=== PATIENT | male | born 1970 | race Asian ===

== ENCOUNTER → 2020-09-03 11:56 | Outpatient (CLI) | payer OTHER, MEDICAID, SELFPAY ==
[2020-09-03] MEDS: COVID-19 VACC, Ad26(JANSSEN)/PF 0.5 ML IM (12:02)
== END ==
PROVIDERS: Visit Provider Internal Medicine
DX: Z23 Encounter for immunization (principal)
CPT/HCPCS: 0031A; 91303

== ENCOUNTER 2022-09-26 09:11 | Emergency (ER) | payer OTHER, SELFPAY ==
[2022-09-26] VITALS (8 sets, daily range): BP systolic 152–169; BP diastolic 73–95; PULSE 68–77; RESP 19; TEMP 36.8; O2SAT 97–98; BMI 30.7
--- NOTE | 2022-09-26 09:19 | DI.RAD.S_ITS ---
PROCEDURE: XR HAND RT MIN 3V INDICATIONS: distal index finger amputation TECHNIQUE: 3 views of the hand(s) acquired. COMPARISON: None. FINDINGS: Bones: Soft tissue defect involving the distal right index finger with amputation of the distal phalanx near the mid portion of the distal phalanx. No radiopaque soft tissue foreign bodies identified. Soft tissue injury noted over the distal tip of the right middle finger without definite fracture or dislocation. Nondisplaced comminuted fracture involving the distal tuft of the right 4th finger. Soft tissues: No suspicious soft tissue calcifications. IMPRESSION: 1. Amputation of the distal tip of the right index finger distal phalanx with overlying soft tissue injury. No definite radiopaque soft tissue foreign body. 2. Comminuted, nondisplaced fracture involving the distal tuft of the right ring finger. 3. Soft tissue injury of the right distal 3rd digit without definite fracture or dislocation. No radiopaque soft tissue foreign body seen. Dictated by: Ian Huerta M.D. on 09/26/2022 at 10:32 Approved by: Ian Huerta M.D. on 09/26/2022 at 10:34
--- NOTE | 2022-09-26 09:24 | ED_ITS ---
HPI - General Adult General Chief complaint: Extremity Injury, Upper Stated complaint: amputation rt hand pinky first knuckle Time Seen by Provider: 09/26/22 09:19 Source: patient Mode of arrival: Ambulatory Limitations: no limitations History of Present Illness HPI narrative: Patient is a 52-year-old male who is here for evaluation of a cut to his right index finger and middle finger. It occurred just prior to arrival. He states he cut it with a circular saw. It did cut the tip of his index finger. The stated complaint is ?pinky? finger but it is his index and middle finger. He does have the tip of the finger with him. No other injuries from the event. Related Data Previous Rx's Medication Instructions Recorded cephalexin 500 mg capsule 500 mg PO QID 5 days #20 caps 09/26/22 hydrocodone 5 mg-acetaminophen 325 1 tab PO Q4-6H PRN pain #14 tabs 09/26/22 mg tablet Allergies Allergy/AdvReac Type Severity Reaction Status Date / Time No Known Drug Allergies Allergy Verified 09/26/22 09:40 Review of Systems Constitutional Constitutional: Reports system reviewed and no additional complaints, except as documented Musculoskeletal Musculoskeletal: Reports system reviewed and no additional complaints, except as documented Integumentary/Breasts Skin/Breast: Reports system reviewed and no additional complaints, except as documented Neurologic Neurologic: Reports system reviewed and no additional complaints, except as documented Hematologic/Lymphatic On Anticoagulants: No Patient History Social History Smoking Status: Never smoker Exam Initial Vital Signs Initial Vital Signs: Vital Signs Temperature 98.3 F 09/26/22 09:26 Pulse Rate 72 09/26/22 09:26 Respiratory Rate 19 09/26/22 09:26 Blood Pressure 169/86 H 09/26/22 09:26 Pulse Oximetry 97 09/26/22 09:26 Oxygen Delivery Method Room Air 09/26/22 09:26 Cardio Pulses: radial pulses present on the right Skin Other: Patient with a flap laceration on the radial aspect of the distal right middle finger distal to the D IP joint. It does not involve the nail. Patient has a complete amputation of the right index finger distal to the D IP joint. Neuro Other: Patient reports intact sensation to the distal aspect of the remaining right index finger Extrem Other: Distal amputation of right index finger. Patient is able to flex and extend actively at the PIP and the IP joint of the index finger and of the middle finger. Procedures Laceration Repair Laceration 1: Site: hand (Right middle finger) Side (If applicable): right Size (cm): 2 Description: irregular and clean Depth: simple, single layer Local Anesthetic: lidocaine 1% Amount of anesthesia used (mL): 3 Pre-repair: wound explored, irrigated extensively and deep structures intact Skin layer closed with: nylon Skin layer suture size: 4-0 Number of sutures: 6 Technique: simple, interrupted Nerve Block Nerve Block 1: Local Anesthetic: lidocaine 1% Amount of anesthesia used (mL): 5 Side: right Nerve Blocks: digital Procedure Successful: Yes Patient Tolerated Procedure: Well Complications: none Course Orders Ordered: ED Orders 09/26/22 09:19 XR hand RT min 3V Stat Discontinued Medications Hydrocodone Bitart/Acetaminophen (Hydrocodone/Acet 5/325 Tablet) 1 tab PO NOW ONE Stop: 09/26/22 09:30 Last Admin: 09/26/22 09:41 Dose: 1 tab Documented By: SY Diphtheria/Tetanus/Acell Pertussis (Tet,Diph,Pertuss(Acell),Vac/Pf 0.5 Ml Syringe) 0.5 ml IM .ONCE ONE Stop: 09/26/22 09:21 Last Admin: 09/26/22 09:41 Dose: 0.5 ml Documented By: SY Lidocaine HCl (Lidocaine 2% Inj Sdv 5ml) 5 ml INJ INTRA-OP ONE Stop: 09/26/22 09:20 Last Admin: 09/26/22 09:42 Dose: 5 ml Documented By: SY Lidocaine HCl (Lidocaine 2% Inj Sdv 5ml) 5 ml INJ INTRA-OP ONE Stop: 09/26/22 09:47 Last Admin: 09/26/22 10:13 Dose: 5 ml Documented By: SY Vital Signs Vital signs: Vital Signs - 8 hr 09/26/22 09:26 09/26/22 09:32 09/26/22 09:33 Temperature 98.3 F Pulse Rate 72 76 Respiratory Rate 19 Blood Pressure 169/86 H 169/86 H Pulse Oximetry 97 97 Oxygen Delivery Method Room Air 09/26/22 09:33 09/26/22 10:00 09/26/22 10:00 Temperature Pulse Rate 72 77 Respiratory Rate Blood Pressure 165/95 H Pulse Oximetry 97 98 Oxygen Delivery Method 09/26/22 10:30 09/26/22 10:31 09/26/22 10:31 Temperature Pulse Rate 73 71 Respiratory Rate Blood Pressure 152/76 H Pulse Oximetry 97 97 Oxygen Delivery Method 09/26/22 11:00 09/26/22 11:01 09/26/22 11:01 Temperature Pulse Rate 68 68 Respiratory Rate Blood Pressure 161/73 H Pulse Oximetry 98 98 Oxygen Delivery Method Medical Decision Making Imaging Data Extremity x-ray #1: Radiologist's Impression: PROCEDURE:? XR HAND RT MIN 3V ? INDICATIONS:? distal index finger amputation ? TECHNIQUE:? 3 views of the hand(s) acquired.? ? COMPARISON:? None. ? FINDINGS:? ? Bones:? Soft tissue defect involving the distal right index finger with amputation of the distal phalanx near the mid portion of the distal phalanx.? No radiopaque soft tissue foreign bodies identified.? Soft tissue injury noted over the distal tip of the right middle finger without definite fracture or dislocation.? Nondisplaced comminuted fracture involving the distal tuft of the right 4th finger. ? Soft tissues:? No suspicious soft tissue calcifications.? ? ? IMPRESSION:? ? 1. Amputation of the distal tip of the right index finger distal phalanx with overlying soft tissue injury.? No definite radiopaque soft tissue foreign body. ? 2. Comminuted, nondisplaced fracture involving the distal tuft of the right ring finger. ? 3. Soft tissue injury of the right distal 3rd digit without definite fracture or dislocation.? No radiopaque soft tissue foreign body seen.? MDM Narrative Medical decision making narrative: Patient has no tenderness at the tip of the right ring finger. I suspect that the injury seen on the x-ray is not new. He does have a laceration at the tip of the right middle finger that was ill regular. We closed it as described above. He is neurovascularly intact in his full range of motion of his MCP and the IP joint. Low suspicion for tendon involvement. Patient does have a distal amputation of the right index finger. It is distal to the DIPJ joint. The bone is not exposed. It is covered by soft tissue. I attempted to close the soft tissue however I was unable to do so. There is not enough to cover the area. I was able to stop the bleeding with Gelfoam. I did discuss the case with Dr. Sanon on-call for Orthopedic surgery who recommended that the patient follow-up in the clinic. I did discuss all this with the patient. Will send home with pain medication and antibiotics. He was given care instructions and return precautions. He expressed understanding and agreement with plan. Discharge Plan Departure Patient Disposition: Home Clinical Impression: Laceration of right middle finger, Amputation of right index finger Instructions: DI for Laceration Repair, DI for Traumatic Finger or Hand Amputat ion Activity Restrictions/Additional Instructions: The bandages that were placed today do need to stay on. I do recommend that later today you contact the Orthopedic Department of the number provided below for a follow-up. Pain medication and antibiotics were sent to the [facility] here in [place]. Return to the emergency department for new or worsening symptoms. Prescriptions: New hydrocodone-acetaminophen 5-325 mg tablet 1 tab PO Q4-6H PRN (Reason: pain) Qty: 14 0RF cephalexin 500 mg capsule 500 mg PO QID 5 Days Qty: 20 0RF Referrals: Miscellaneous,DoctorMD [Primary Care Provider] - Ronnell Sanon MD [Physician] - Stand Alone Forms: Patient Portal/API
[2022-09-26] MEDS: TET,DIPH,PERTUSS(ACELL),VAC/PF 0.5 ML SYRINGE IM (09:41)
[2022-09-26] MEDS: HYDROCODONE/ACET 5/325 TABLET 1 TAB PO (09:41)
[2022-09-26] MEDS: LIDOCAINE 2% INJ SDV 5ML 5 ML INJ ×2 (09:42→10:13)
== END 2022-09-26 11:47 | disposition home or self-care (01) ==
PROVIDERS: Emergency Provider Emergency Medicine
DX: S68.120A Partial traumatic metacarpophalangeal amputation of right index finger, initial encounter (principal); S61.212A Laceration without foreign body of right middle finger without damage to nail, initial encounter; W27.0XXA Contact with workbench tool, initial encounter; Y99.0 Civilian activity done for income or pay; Z23 Encounter for immunization
CPT/HCPCS: 12001; 73130; 90471; 99283; 99284; 90715

== ENCOUNTER 2023-11-27 08:04 | Emergency (ER) | payer BC, SELFPAY ==
[2023-11-27 09:22] VITALS: BP 167/91; PULSE 60; RESP 18; TEMP 36.6; O2SAT 100
--- NOTE | 2023-11-27 10:16 | PC.NURSE ---
This EDRN attempted to use the railroad crossing protection maintainer phone for triage, but was unable to reach a [facility] railroad crossing protection maintainer after 15 minutes. Patient then decline railroad crossing protection maintainer at this time and requested to have his translate for him.
--- NOTE | 2023-11-27 11:45 | DI.CT.S_ITS ---
PROCEDURE: CT FACIAL BONES W CON INDICATIONS: ?dental/facial abscess TECHNIQUE: After the administration of intravenous contrast, 2.5 mm axial sections acquired from the mid-neck to the frontal sinuses, with coronal and sagittal reformats. For radiation dose reduction, the following was used: automated exposure control, adjustment of mA and/or kV according to patient size. COMPARISON: None. FINDINGS: Image quality: Excellent. Soft tissues: No edema, masses, or fluid collections. No enlarged lymph nodes. Vascular: Visualized vascular structures appear patent throughout. Bony vascular foramina and canals appear normal. Bones: Facial bones appear intact, without fractures, erosions, or destruction. Visualized portions of the skull base and auditory canals also appear normal. Sinuses: Paranasal sinuses demonstrate scattered areas of mucosal thickening most severe in the left maxillary sinus. No fluid levels. IMPRESSION: No visualized abscess. Dictated by: Annalisa Thurman M.D. on 11/27/2023 at 12:48 Approved by: Annalisa Thurman M.D. on 11/27/2023 at 12:49
[2023-11-27 12:12] LABS: Add Manual Diff / Slide Review NO; Basophils Absolute Auto 0 /uL (0-100); Basophils Percent Auto 0.4 % (0-2); Eosinophils Absolute Auto 100 /uL (0-450); Eosinophils Percent Auto 0.8 % (2-4); Hematocrit 38.9 % (41-53); Hemoglobin 13.4 g/dL (13.5-17.5); Lymphocytes Absolute Auto 2000 /uL (1100-4500); Lymphocytes Percent Auto 27.3 % (25-40); Mean Corpuscular HGB Conc 34.5 % (30-36); Mean Corpuscular Hemoglobin 29.7 PG (26-34); Mean Corpuscular Volume 86.2 fL (80-100); Monocytes Absolute Auto 500 /uL (0-900); Monocytes Percent Auto 6.7 % (3-14); Neutrophils Absolute Auto 4600 /uL (1500-7000); Neutrophils Percent Auto 64.8 % (50-75); Platelet Count 180 X10^3/uL (150-400); Red Blood Cell Count 4.52 X10^6/uL (4.5-5.9); Red Cell Distribution Width 13.6 % (11.6-14.8); White Blood Cell Count 7.1 X10^3/uL (4.5-11.0)
[2023-11-27] MEDS: KETOROLAC 30 MG/ML VIAL 15 MG IV (12:25)
[2023-11-27 12:53] LABS: Alanine Aminotransferase 21 IU/L (<50); Albumin 4.5 g/dL (3.5-5.0); Albumin Globulin Ratio 1.1 (1.0-2.8); Alkaline Phosphatase 103 U/L (38-126); Aspartate Aminotransferase 26 IU/L (17-59); BUN Creatinine Ratio 20.5 (6-22); Bilirubin Total 0.6 mg/dL (0.2-1.3); Blood Urea Nitrogen 15 mg/dL (9-20); Calcium 9.3 mg/dL (8.4-10.2); Carbon Dioxide 24 mmol/L (22-32); Chloride 108 mmol/L (98-107); Estimated Glomerular Filt Rate > 60 mL/min (>60); Globulin 4.1 g/dL (1.7-4.1); Glucose 102 mg/dL (70-100); HEMOLYSIS < 15 (0-50); Potassium 4.4 mmol/L (3.4-5.1); Sodium 139 mmol/L (137-145); Total Protein 8.6 g/dL (6.3-8.2)
[2023-11-27 14:08] VITALS: BP 170/82; PULSE 82; RESP 16; O2SAT 99
--- NOTE | 2023-11-27 15:46 | ED.DENTAL ---
HPI - Dental/Oral <Andreas Espino PA-C - Last Filed: 11/27/23 17:53> General Chief complaint: Dental/Oral Stated complaint: swelling on L side face Time Seen by Provider: 11/27/23 11:32 Source: patient Mode of arrival: Ambulatory History of Present Illness HPI Narrative: 53-year-old male presents to the ED with 2 days of left-sided dental pain and swelling. Patient states that he got a seed from a guava fruit stuck in his gum 3 weeks ago and has not been able to get it out. Starting yesterday, patient states that he started experiencing severe pain in his gums and that the pain has moved up his face as well. No fever, chills, nausea, vomiting. Patient took some Tylenol this morning with minimal relief. Related Data Previous Rx's Medication Instructions Recorded amoxicillin 875 mg-potassium 1 tab PO Q12H 10 days #20 tabs 11/27/23 clavulanate 125 mg tablet Allergies Allergy/AdvReac Type Severity Reaction Status Date / Time No Known Drug Allergies Allergy Verified 11/27/23 09:25 Review of Systems <Andreas Espino PA-C - Last Filed: 11/27/23 17:53> Constitutional Constitutional: Denies chills, Denies fatigue, Denies fever(s), Denies frequent falls, Denies lethargy and Denies weakness Eyes Eyes: Denies change in vision, Denies eye discharge, Denies irritation and Denies loss of vision ENT Ears, Nose, Mouth, and Throat: Denies change in voice, Reports dental pain, Denies dizziness, Reports facial pain, Denies neck pain, Denies sore throat and Denies throat swelling Cardiovascular Cardiovascular: Denies chest pain, Denies irregular heart rhythm, Denies lightheadedness, Denies palpitations, Denies dyspnea, Denies dyspnea on exertion and Denies orthopnea Respiratory Respiratory: Denies cough, Denies dyspnea, Denies dyspnea on exertion and Denies wheezing Gastrointestinal Gastrointestinal: Denies abdominal pain, Denies change in bowel habits, Denies diarrhea, Denies nausea and Denies vomiting Musculoskeletal Musculoskeletal: Denies neck pain and Denies numbness Integumentary/Breasts Skin/Breast: Denies pruritus, Denies erythema, Denies rash and Denies wounds Neurologic Neurologic: Denies behavioral changes, Denies confusion, Denies dizziness, Denies frequent falls, Denies loss of vision, Denies numbness and Denies weakness Psychiatric Psychiatric: Denies anxiety, Denies behavioral changes, Denies confusion, Denies depression, Denies homicidal ideation and Denies suicidal ideation Endocrine Endocrine: Denies fatigue, Denies flushing and Denies palpitations Hematologic/Lymphatic Hematologic/Lymphatic: Denies easy bruising Allergic/Immunologic Allergic/Immunologic: Denies urticaria, Denies throat swelling and Denies wheezing Patient History <Andreas Espino PA-C - Last Filed: 11/27/23 17:53> Social History Smoking Status: Never smoker Smoking Status: Never smoker Substance Use Type: does not use Exam <Andreas Espino PA-C - Last Filed: 11/27/23 17:53> Narrative Exam Narrative: Const General:?cooperative, healthy appearing and comfortable HENRI Head:?normal to inspection Ears:?hearing grossly normal bilaterally Nose:?external nose normal Face and sinus:? Left maxillary swelling, tenderness to palpation Mouth:? Tenderness to palpation of left-sided upper gums. No abscess, discharge noted on exam Throat:?posterior oropharynx normal Eyes General:?appearance normal, both eyes and all related structures Neck Neck:?normal visual inspection and no lymphadenopathy noted Resp Effort & Inspection:?normal respiratory effort Auscultation:?clear to auscultation bilaterally Cardio Rate:?regular rate Rhythm:?regular rhythm Neuro General:?patient alert, patient awake and patient oriented x3 Initial Vital Signs Initial Vital Signs: Vital Signs Temperature 98 F 11/27/23 09:22 Pulse Rate 60 11/27/23 09:22 Respiratory Rate 18 11/27/23 09:22 Blood Pressure 167/91 H 11/27/23 09:22 Pulse Oximetry 100 11/27/23 09:22 Oxygen Delivery Method Room Air 11/27/23 09:22 <Jaye Walsh MD - Last Filed: 11/28/23 07:08> Initial Vital Signs Initial Vital Signs: Vital Signs Temperature 98 F 11/27/23 09:22 Pulse Rate 60 11/27/23 09:22 Respiratory Rate 18 11/27/23 09:22 Blood Pressure 167/91 H 11/27/23 09:22 Pulse Oximetry 100 11/27/23 09:22 Oxygen Delivery Method Room Air 11/27/23 09:22 Course <Andreas Espino PA-C - Last Filed: 11/27/23 17:53> Orders Ordered: Discontinued Medications Ketorolac Tromethamine (Ketorolac 30 Mg/Ml Vial) 15 mg IV NOW ONE Stop: 11/27/23 12:15 Last Admin: 11/27/23 12:25 Dose: 15 mg Documented By: JENNIFER Vital Signs Vital signs: Vital Signs - 8 hr 11/27/23 14:08 Pulse Rate 82 Respiratory Rate 16 Blood Pressure 170/82 H Pulse Oximetry 99 Oxygen Delivery Method Room Air <Jaye Walsh MD - Last Filed: 11/28/23 07:08> Orders Ordered: Discontinued Medications Ketorolac Tromethamine (Ketorolac 30 Mg/Ml Vial) 15 mg IV NOW ONE Stop: 11/27/23 12:15 Last Admin: 11/27/23 12:25 Dose: 15 mg Documented By: JENNIFER Vital Signs Vital signs: Vital Signs - 8 hr 11/27/23 14:08 Pulse Rate 82 Respiratory Rate 16 Blood Pressure 170/82 H Pulse Oximetry 99 Oxygen Delivery Method Room Air MDM - Dental/Oral <Andreas Espino PA-C - Last Filed: 11/27/23 17:53> Lab Data 11/27/23 12:04 11/27/23 12:04 Labs: Lab Results 11/27/23 Range/Units 12:04 WBC 7.1 (4.5-11.0) X10^3/uL RBC 4.52 (4.5-5.9) X10^6/uL Hgb 13.4 L (13.5-17.5) g/dL Hct 38.9 L (41-53) % MCV 86.2 (80-100) fL MCH 29.7 (26-34) PG MCHC 34.5 (30-36) % RDW 13.6 (11.6-14.8) % Plt Count 180 (150-400) X10^3/uL Neut % (Auto) 64.8 (50-75) % Lymph % (Auto) 27.3 (25-40) % [place]ack[place]ord % (Auto) 6.7 (3-14) % Eos % (Auto) 0.8 L (2-4) % Baso % (Auto) 0.4 (0-2) % Neut # (Auto) 4600 (5077-2381) /uL Lymph # (Auto) 2000 (1618-9408) /uL [place] # (Auto) 500 (0-900) /uL Eos # (Auto) 100 (0-450) /uL Baso # (Auto) 0 (0-100) /uL Sodium 139 (137-145) mmol/L Potassium 4.4 (3.4-5.1) mmol/L Chloride 108 H (98-107) mmol/L Carbon Dioxide 24 (22-32) mmol/L BUN 15 (9-20) mg/dL Creatinine 0.73 (0.66-1.25) mg/dL Estimated GFR > 60 (>60) mL/min BUN/Creatinine Ratio 20.5 (6-22) Glucose 102 H (70-100) mg/dL Calcium 9.3 (8.4-10.2) mg/dL Total Bilirubin 0.6 (0.2-1.3) mg/dL AST 26 (17-59) IU/L ALT 21 (<50) IU/L Alkaline Phosphatase 103 (38-126) U/L Total Protein 8.6 H (6.3-8.2) g/dL Albumin 4.5 (3.5-5.0) g/dL Globulin 4.1 (1.7-4.1) g/dL Albumin/Globulin Ratio 1.1 (1.0-2.8) MDM Narrative Medical decision making narrative: 53-year-old male presents to the ED with 2 days of left-sided dental pain and swelling. Given the significant swelling to the left cheek, will obtain CT to evaluate for facial/dental abscess. Per the CT read, paranasal sinuses demonstrate scattered areas of mucosal thickening most severe in the left maxillary sinus. No fluid levels. No visualized abscess. Labs within normal limits. Discussed findings with patient that his symptoms are most consistent with an infection of dental origin, infiltrating into his maxillary sinus. Prescribed antibiotics. Patient's pain improved with ketorolac. Recommend continuing ibuprofen at home for pain relief. Recommend follow-up with a dentist as soon as possible. ED return precautions discussed with patient. Patient verbalized understanding. Medical records reviewed: Yes <Jaye Walsh MD - Last Filed: 11/28/23 07:08> Lab Data Labs: Lab Results 07/01/24 Range/Units 12:04 WBC 7.1 (4.5-11.0) X10^3/uL RBC 4.52 (4.5-5.9) X10^6/uL Hgb 13.4 L (13.5-17.5) g/dL Hct 38.9 L (41-53) % MCV 86.2 (80-100) fL MCH 29.7 (26-34) PG MCHC 34.5 (30-36) % RDW 13.6 (11.6-14.8) % Plt Count 180 (150-400) X10^3/uL Neut % (Auto) 64.8 (50-75) % Lymph % (Auto) 27.3 (25-40) % Shackelford % (Auto) 6.7 (3-14) % Eos % (Auto) 0.8 L (2-4) % Baso % (Auto) 0.4 (0-2) % Neut # (Auto) 4600 (5071-0474) /uL Lymph # (Auto) 2000 (6208-6460) /uL Shackelford # (Auto) 500 (0-900) /uL Eos # (Auto) 100 (0-450) /uL Baso # (Auto) 0 (0-100) /uL Sodium 139 (137-145) mmol/L Potassium 4.4 (3.4-5.1) mmol/L Chloride 108 H (98-107) mmol/L Carbon Dioxide 24 (22-32) mmol/L BUN 15 (9-20) mg/dL Creatinine 0.73 (0.66-1.25) mg/dL Estimated GFR > 60 (>60) mL/min BUN/Creatinine Ratio 20.5 (6-22) Glucose 102 H (70-100) mg/dL Calcium 9.3 (8.4-10.2) mg/dL Total Bilirubin 0.6 (0.2-1.3) mg/dL AST 26 (17-59) IU/L ALT 21 (<50) IU/L Alkaline Phosphatase 103 (38-126) U/L Total Protein 8.6 H (6.3-8.2) g/dL Albumin 4.5 (3.5-5.0) g/dL Globulin 4.1 (1.7-4.1) g/dL Albumin/Globulin Ratio 1.1 (1.0-2.8) Discharge Plan Departure Patient Disposition: Home Clinical Impression: Toothache Instructions: DI for Dental Pain Activity Restrictions/Additional Instructions: You were evaluated in the ED today for facial swelling and dental pain. Your CT scan shows a possible infection in the sinus. You are being prescribed antibiotics. Please take them as prescribed. You may take 800 mg of ibuprofen every 8 hours with food for pain. Ibuprofen is available [id number] under the brand name Advil. Please follow-up with your dentist as soon as possible to address the dental issue. Return to the ED if you have worsening symptoms. Prescriptions: New amoxicillin-pot clavulanate 875-125 mg tablet 1 tab PO Q12H 10 Days Qty: 20 0RF Stand Alone Forms: Patient Portal/API ED Sign-out <Jaye Walsh MD - Last Filed: 11/28/23 07:08> Cosign ED Attending Cosjulioature Attestation: I was immediately available in the department for consultation throughout this patient's visit. Jaye Walsh MD
== END 2023-11-27 14:08 | disposition home or self-care (01) ==
PROVIDERS: Emergency Provider Student in an Organized Health Care Education/Training Program
DX: K08.89 Other specified disorders of teeth and supporting structures (principal)
CPT/HCPCS: 36415; 70487; 80053; 85025; 96374; 99284; J1885; Q9967

== ENCOUNTER → 2023-12-29 08:10 | Outpatient (CLI) | payer BC, SELFPAY ==
[2023-12-29 09:11] LABS: COVID-19 CEPHEID 4-PLEX PCR Negative (Negative); Influenza A - CEPHEID Flu A NEGATIVE (NEGATIVE); Influenza B - CEPHEID Flu B NEGATIVE (NEGATIVE); Respiratory Syncytial Virus Negative (Negative)
== END ==
PROVIDERS: Referring Provider Registered Nurse; Visit Provider Registered Nurse
DX: R52 Pain, unspecified (principal)
CPT/HCPCS: 0241U